=== PATIENT | male | born 1945 | race Caucasian/White ===

== ENCOUNTER → 2018-02-28 | Outpatient (CLI) | payer MEDICARE ==
[~2018-02-28] MED LIST: FLONASE 0.05%50 MCG NS; IBUPROFEN 800800 M1 PO; NIFEDIPINE ER90 M1 PO; TAMSULOSIN HCL0.4 MG PO; TOPROL XL100 MG PO
== END ==
LOC: M.RAD 11:20
DX: I51.7 Cardiomegaly (principal); J98.11 Atelectasis